=== PATIENT | female | born 1965 ===

== ENCOUNTER 2018-09-13 14:57 | Outpatient (CLI) | payer OTHER ==
[~2018-09-13] VITALS: Ht 157.5 cm; Wt 70.3 kg
== END 2018-09-13 18:33 | disposition home or self-care (01) ==
LOC: OFIC 805 14:57
DX: R49.0 Dysphonia (principal); J38.2 Nodules of vocal cords

== ENCOUNTER 2018-10-25 14:46 | Outpatient (CLI) | payer OTHER ==
[~2018-10-25] VITALS: Ht 152.4 cm; Wt 70.3 kg
== END 2018-10-25 15:00 | disposition home or self-care (01) ==
LOC: OFIC 805 14:46
DX: K21.9 Gastro-esophageal reflux disease without esophagitis (principal); J38.2 Nodules of vocal cords; J30.89 Other allergic rhinitis

== ENCOUNTER 2018-11-18 15:45 | Outpatient (CLI) | payer OTHER ==
[~2018-11-18] VITALS: Ht 152.4 cm; Wt 70.3 kg
== END 2018-11-18 16:00 | disposition home or self-care (01) ==
LOC: OFIC 805 15:45
DX: R49.0 Dysphonia (principal); J30.89 Other allergic rhinitis; J38.2 Nodules of vocal cords; K21.0 Gastro-esophageal reflux disease with esophagitis

== ENCOUNTER 2019-06-27 08:41 | Outpatient (CLI) | payer OTHER ==
[~2019-06-27] VITALS: Ht 152.4 cm; Wt 74.8 kg
== END 2019-06-27 09:00 | disposition home or self-care (01) ==
LOC: OFIC 805 08:41
DX: J30.89 Other allergic rhinitis (principal); H61.23 Impacted cerumen, bilateral

== ENCOUNTER 2020-05-07 09:17 | Outpatient (CLI) | payer OTHER ==
[~2020-05-07] VITALS: Ht 152.4 cm; Wt 68.0 kg
[2020-05-07] MEDS ORDERED: AZELASTINE137 MCG/0. NASAL (14:18)
[2020-05-07] MEDS ORDERED: FLONASE16 GM NASAL (14:19)
[2020-05-07] MEDS ORDERED: SINGULAIR10 MG PO (14:20)
[2020-05-07] MEDS ORDERED: SYMBICORT 80/10.2 GM IH (14:35)
== END 2020-05-07 15:44 | disposition home or self-care (01) ==
LOC: OFIC 805 09:17
PROVIDERS: ATTEND Otolaryngology
DX: J30.89 Other allergic rhinitis (principal); R09.81 Nasal congestion; J38.2 Nodules of vocal cords